=== PATIENT | male | born 2005 | race African-American/Black ===

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

== ENCOUNTER 2025-07-18 13:26 | Outpatient (AMB) | payer MEDICAID, SELFPAY ==
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
[2025-07-18 13:31] VITALS: BMI 16.2
== END 2025-07-18 14:24 | disposition home or self-care (01) ==
LOC: HO.HOS 13:26
PROVIDERS: Visit Provider Orthopaedic Surgery
DX: S61.412A Laceration without foreign body of left hand, initial encounter (principal); S41.132A Puncture wound without foreign body of left upper arm, initial encounter
CPT/HCPCS: 99204

== ENCOUNTER → 2025-07-18 13:26 | Outpatient (BNVA) | payer MEDICAID, SELFPAY | PROVIDERS: Visit Provider Orthopaedic Surgery | DX: S61.412A Laceration without foreign body of left hand, initial encounter (principal); S41.132A Puncture wound without foreign body of left upper arm, initial encounter; R20.2 Paresthesia of skin | CPT/HCPCS: 99202 ==

== ENCOUNTER → 2025-07-18 13:42 | Outpatient (BNV) | payer MEDICAID, SELFPAY | PROVIDERS: Visit Provider Radiology Diagnostic Radiology | DX: M79.5 Residual foreign body in soft tissue (principal) | CPT/HCPCS: 73130 ==

== ENCOUNTER 2025-07-19 08:30 | Outpatient (REF) | payer MEDICAID, SELFPAY ==
--- NOTE | ~2025-07-19 | XR_ITS ---
EXAMINATION: XR HAND 3 OR MORE VIEWS LEFT HISTORY: M79.642 - Pain in left hand COMPARISON: There are no prior studies available for comparison. FINDINGS: Three views of the right hand are submitted. Osseous mineralization is normal. There is no fracture or dislocation. The joint spaces are preserved. There is a 7 mm foreign body in the soft tissues of the palm. XR/XR hand LT min 3V IMPRESSION: 7 mm foreign body in the soft tissues of the palm. No osseous abnormality is identified. Electronically signed by: Lalo Sanchez MD 07/18/2025 01:50 PM EDT
--- OUTSIDE RECORDS SUMMARY | 2025-07-20 09:24 | XMS_ITS | Encounter Summary ---
Author Organization [facility] Address [email or web address] [place] [address] Phone Care Team Providers Care Grinder Dresser Name Role Phone Jo Ann Evangelista NP Primary Care Provider [phone] Encounter Details Date Type Department Care Team (Late Contact Info) Description 07/19/2025 Ancillary Orders [facility] IMG OUTSIDE IMG [address] [place] [address] Zelda Amato MD [address] [place] [address] [email or web address] Social History Tobacco Use Types Packs/Day Years Used Date Smoking Tobacco: Never Assessed Education Answer Date Recorded Are you interested in more education? Not on sudhakar e 07/19/2025 Are you concerned about learning? Not on file 07/19/2025 No 07/19/2025 No 07/19/2025 Digital Access Answer Date Recorded No 07/19/2025 No 07/19/2025 Reliable internet access at home? Not on file 07/19/2025 Device with a working camera? Not on file Sex and Gender Information Value Date Recorded Sex Assigned at Not on file Legal Sex Male 10:05 AM EDT Gender Identity Not on file Sexual Orientation Not on file documented as of this encounter Plan of Treatment Upcoming Encounters Date Type Department Care Team (Late st Contact Info) Description 08/04/2025 12:00 PM EDT Office Visit [facility] [address], [address] [place] [address] Zelda Amato MD [address] [facility] [address] [place] [address] [email or web address] documented as of this encounter Results * CT Face Outside (No Interpretation) (06/22/2025 12:05 AM EDT) Narrative [facility] IMG INTERFACES - 07/19/2025 3:23 PM EDT This study is for PACS storage only and not for interpretation. us Zelda Amato MD IMG OUTSIDE IMAGING W/ OUT INTERPRETATION Final Result [facility] IMG INTERFACES documented in this encounter Visit Diagnoses Not on filedocumented in this encounter Care Teams Grinder Dresser Relationship Specialty Start Date End Date Jo Ann Evangelista NP [address] [place] [id number] PCP - General Nurse Practitioner 07/19/25 documented as of this encounter Additional Source Comments The information contained in this document represents components of the legal health record. It is not the complete legal health record.[facility]
== END 2025-07-19 08:31 | disposition home or self-care (01) ==
LOC: HO.HOSX 08:30
PROVIDERS: Visit Provider Orthopaedic Surgery
DX: M79.642 Pain in left hand (principal)
CPT/HCPCS: 73130

== ENCOUNTER 2025-09-04 16:17 | Outpatient (REF) | payer MEDICAID, SELFPAY ==
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
[2025-09-04 18:02] LABS: CT PCR Urine NOT DETECTED (Not Detect.); NG PCR Urine NOT DETECTED (Not Detect.)
--- OUTSIDE RECORDS SUMMARY | 2025-09-04 18:29 | XMS_ITS | Encounter Summary ---
Author Organization [employer] Address [address] [place] [address] Care Team Providers Care Superintendent Concrete Mixing Plant Name Role Phone Jo Ann Evangelista Primary Care Provider [phone] Reason for Visit * Reason Onset Date Comments chartprep 09/01/2025 Encounter Details Date Type Department Care Team ([facility] st Contact Info) Description 09/01/2025 Telephone [facility] [address] [place] [address] Jo Ann Evangelista ANP [address] [place] [address] chartprep Social History Tobacco Use Types Packs/Day Years Used Date Smoking Tobacco: Never Passive Smoke Exposure: Never Smokeless Tobacco: Never Alcohol Use Standard Drinks/Week Comments Never 0 [...] AM EDT documented as of this encounter Miscellaneous Notes * Telephone Encounter - Alee Miranda [place] - 09/01/2025 1:23 PM EDT ..Chart Prep Labs: not applicable Images: done Xr hand Vaccines due: Covid Due, Hep A Due, Flu Due, and HPV Referrals: ENT Requested notes by Fax. Waiting for notes. Screenings: Not Applicable Overdue care gaps: Sbirt documented in this encounter Plan of Treatment Not on file documented as of this encounter Visit Diagnoses Not on filedocumented in this encounter Additional Health Concerns Assessment Noted Time PHQ-9 Depression Total Score: 2 07/18/20 25 10:23 AM EDT documented as of this encounter Care Teams Superintendent Concrete Mixing Plant Relationship Specialty Start Date End Date Jo Ann Evangelista ANP [address] [place] [address] PCP - General Family Medicine 08/20/23 documented as of this encounter
--- OUTSIDE RECORDS SUMMARY | 2025-09-04 18:29 | XMS_ITS | Encounter Summary ---
Author Organization [employer] Address [address] [place] [address] Care Team Providers Care Molding Process Technician Name Role Phone Jo Ann Evangelista CARTER Primary Care Provider [phone] Encounter Details Date Type Department Care Team (Latest Contact Info) Description 09/04/2025 Travel Social History Tobacco Use Types Packs/Day Years [...] AM EDT documented as of this encounter Plan of Treatment Not on file documented as of this encounter Visit Diagnoses Not on filedocumented in this encounter Additional Health Concerns Assessment Noted Time PHQ-9 Depression Total Score: 2 07/18/20 25 10:23 AM EDT documented as of this encounter Care Teams Molding Process Technician Relationship Specialty Start Date End Date Jo Ann Evangelista ANP [address] [place] [id number] PCP - General Family Medicine 08/20/23 documented as of this encounter
--- OUTSIDE RECORDS SUMMARY | 2025-09-04 18:29 | XMS_ITS | Encounter Summary ---
Author Organization [employer] Address [address] [place] [address] Care Team Providers Care Logistics Support Name Role Phone Jean Carlos Jo Ann MACHADO Primary Care Provider [phone] Encounter Details Date Type Department Care Team ([facility] st Contact Info) Description 09/01/[address] [facility] [address] [place] [address] [place] Social History Tobacco Use Types Packs/Day Years [...] encounter Miscellaneous Notes * Telephone Encounter - Marcia Bustos [place] - 09/01/2025 1:26 PM EDT Chart Prep Labs: not applicable Images: done Referrals: dental internal ,ENT pending Vaccines due: Covid, Flu, Hep A, and HPV Screenings: HIV Overdue care gaps: SBIRT documented in this encounter Plan of Treatment Not on file documented as of this encounter Visit Diagnoses Not on filedocumented in this encounter Additional Health Concerns Assessment Noted Time PHQ-9 Depression Total Score: 2 07/18/20 25 10:23 AM EDT documented as of this encounter Care Teams Logistics Support Relationship Specialty Start Date End Date Jo Ann Evangelista ANP [address] [place] [id number] PCP - General Family Medicine 08/20/23 documented as of this encounter
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
--- OUTSIDE RECORDS SUMMARY | 2025-09-04 18:29 | XMS_ITS | Encounter Summary ---
Author Organization [employer] Address [address] [facility] 7[address] [place] [address] Care Team Providers Care Inspecting Engineer Name Role Phone Sudheer Frederick Primary Care Provider Unavail Jo Ann Ortega Primary Care Provider [phone] Encounter Details Date Type Department Care Team ([facility] st Contact Info) Description 12/11/2022 Abstract [facility] [address] [place] [address] Shelly Malik, ADARSH Social History Tobacco Use Types Packs/Day Years Used Date Smoking Tobacco: Never Alcohol Use Standard Drinks/Week Comments Never 0 (1 standard drink = 0.6 oz pur e alcohol) Sex and Gender Information Value Date Recorded Sex Assigned at Male 09/29/2022 10:39 AM EDT Legal Sex Male 10:39 AM EDT Gender Identity Male 09/29/2022 10:39 AM EDT Sexual Orientation Choose not to disclose 2021 10:39 AM EDT COVID-19 Exposure Response Date Recorded In the last 10 days, have yo u been in contact with someone who was confirmed or suspected to have Coronavirus/COVID-19? No / Unsure 12/11/2022 7:42 AM EST documented as of this encounter Plan of Treatment Not on file documented as of this encounter Visit Diagnoses Not on filedocumented in this encounter Care Teams Inspecting Engineer Relationship Specialty Start Date End Date Sudheer Frederick AGNP PCP - General Family Medicine 11/25/22 08/19/23 Jo Ann Evangelista ANP [address] [place] [address] PCP - General Family Medicine 08/20/23 documented as of this encounter
--- OUTSIDE RECORDS SUMMARY | 2025-09-04 18:29 | XMS_ITS | Clinical Summary ---
Author Organization [facility] Address [facility] [address] [place] [phone] Phone Care Team Providers Care Demo Specialist Name Role Phone Jean Carlos Jo Ann MACHADO Primary Care Provider [phone] Allergies No known active allergies Medications No known medications Encounters Date Type Department Care Team Description 08/04/2025 12:00 PM EDT Office Visit [facility] [address] [facility], [address] [address] Zelda Amato MD Open fracture of mandible, unspecified laterality, unspecified mandibular site, initial encounter (Primary Dx); Malocclusion; Trismus 07/21/2025 Orders Only [facility] [address] [facility], [address] [address] ProviderSarina MD 07/19/2025 Ancillary Orders [facility] [address] [place] [address] Zelda Amato MD 07/19/2025 Ancillary Orders [facility] [address] [place] [address] Zelda Amato MD 07/19/2025 Ancillary Orders [facility] [address] [place] [address] Zelda Amato MD 07/19/2025 Ancillary Orders [facility] [address] [place] [address] Zelda Amato MD 06/22/2025 12:15 AM EDT - 06/22/2025 11:59 PM EDT Hospital Encounter [facility] [address] [place] [address] Zelad Amato MD Discharge Disposition: Home or Self Care 06/22/2025 12:10 AM EDT - 06/22/2025 12:14 AM EDT Hospital Encounter [facility] [address] [place] [address] Zelda Amato MD Discharge Disposition: Home or Self Care 06/22/2025 12:05 AM EDT - 06/22/2025 12:09 AM EDT Hospital Encounter [facility] [address] [place] [address] Zelda Amato MD Discharge Disposition: Home or Self Care 06/22/2025 - 06/22/2025 12:04 AM EDT Hospital Encounter [facility] [address] [place] [address] Zelda Amato MD Discharge Disposition: Home or Self Care from Last 3 Months Social History Tobacco Use Types Packs/Day Years Used Date Smoking Tobacco: Never Smokeless Tobacco: Never Tobacco Cessation:Counseling Given: Not Answered Education Answer Date Recorded Are you interested [...] on file Sexual Orientation Not on file Plan of Treatment Upcoming Encounters Date Type Department Care Team (Late st Contact Info) Description 08/04/2025 Procedure Pass [facility] Ct Scan - [address] [address] 09/08/2025 12:00 PM EDT Appointment [facility] - [facility] [address] [place] [address] Zelda Amato MD [address] [place] [phone] Health Maintenance Due Date Last Done Comments DEVELOPMENTAL/BEHAVIORAL SCREENING (PHQ, PSC, or SWYC) 2008 VARICELLA VACCINES (2 of 2 - 2-dose childhood series) 2009 05/12/2006 DEPRESSION SCREENING 2017 HPV VACCINES (1 - Male 3-dos e series) 2020 MENINGOCOCCAL VACCINES (B) ( 1 of 2 - Standard) 2021 COMBINED DTaP,Tdap,Td (3 - T d or Tdap) 08/27/2021 07/30/2021, 2005 ADOLESCENT UNIVERSAL LIPID SCREENING 2022 HEPATITIS C SCREENING 2023 HIV ONE-TIME SCREENING (18-6 5 YEARS) 2023 INFLUENZA VACCINE (#1) 2025 COVID-19 VACCINE (1 - 2024-2 6 season) 2025 SMOKING Hx and SMOKELESS TOBACCO SCREENING 08/04/2026 08/04/2025 MMR VACCINES Completed 12/06/2008, 05/12/2006 HEPATITIS A VACCINES Aged Out No long er eligible based on patient's age to complete this topic HIB VACCINES Aged Out No longer eligi ble based on patient's age to complete this topic MENINGOCOCCAL VACCINES (ACWY) Aged Out No longer eligible based on patient's age to complete this topic PNEUMOCOCCAL VACCINES (0-49 years) Aged Out No longer eligible b ased on patient's age to complete this topic Medical Devices Not on file Procedures Procedure Name Priority Date/Time Associated Diagnosis Comments OUTSIDE IMAGING Routine 06/22/2025 7:[address] HEAD OUTSIDE (NO INTERPRETATION) Routine 06/22/2025 12:[address] SPINE (BONE) OUTSIDE (NO INTERPRETATION) Routine 06/22/2025 12:[address] FACE OUTSIDE (NO INTERPRETATION) Routine 06/22/2025 12:[address] NECK OUTSIDE (NO INTERPRETATION) Routine 06/22/2025 12:00 AM EDT from Last 3 Months Results * Outside Imaging Report Only (06/22/2025 7:51 AM EDT) us Historical Provider IMG XR CHEST Final Res ult * CT Head Outside (No Interpretation) (06/22/2025 12:15 AM EDT) Narrative [facility] INTER[facility]ACES - 07/19/2025 3:24 PM EDT This study is for PACS storage only and not for interpretation. us Zelda Amato MD IMG OUTSIDE IMAGING W/ OUT INTERPRETATION Final Result Performing Organization Address [facility] de Phone Number [facility] INTER[facility]AC[facility] * CT Spine (Bone) Focus Outside (No Interpretation) (06/22/2025 12:10 AM EDT) Narrative [facility] INTER[facility]ACES - 07/19/2025 3:23 PM EDT This study is for PACS storage only and not for interpretation. us Zelda Amato MD IMG OUTSIDE IMAGING W/ OUT INTERPRETATION Final Result Performing Organization Address [facility] de Phone Number [facility]AC[facility] * CT Face Outside (No Interpretation) (06/22/2025 12:05 AM EDT) Narrative [facility] INTER[facility] - 07/19/2025 3:23 PM EDT This study is for PACS storage only and not for interpretation. us Zelda Amato MD IMG OUTSIDE IMAGING W/ OUT INTERPRETATION Final Result Performing Organization Address [facility] de Phone Number [facility] INTERFACES * CT Neck Outside (No Interpretation) (06/22/2025 12:00 AM EDT) Narrative [facility] INTER[facility] - 07/19/2025 3:23 PM EDT This study is for PACS storage only and not for interpretation. us Zelda Amato MD IMG OUTSIDE IMAGING W/ OUT INTERPRETATION Final Result [facility] INTERFACES from Last 3 Months [id number] [place] [address] [id number] [place] [address] C3 ACO [facility] C3 ACO [id number] [place] [address] C3 [employer] [facility] C3 [employer] [facility] C3 [employer] [facility] [employer] Care Teams Demo Specialist Relationship Specialty Start Date End Date Jo Ann Evangelista ANP [address] [place] [phone] PCP - General Nurse Practitioner 07/19/25 Additional Source Comments The information contained in this document represents components of the legal health record. It is not the complete legal health record.[facility]
--- OUTSIDE RECORDS SUMMARY | 2025-09-04 18:29 | XMS_ITS | Clinical Summary ---
Author Organization [facility] Address [address] [place] [address] Phone Care Team Providers Care Associate Professor Of Geology Name Role Phone Physician, Pcp Unknown Primary Care Provider Linda vailable Allergies No known active allergies Encounters Date Type Department Care Team Description 08/10/2025 9:25 AM EDT - 08/10/2025 11:19 AM EDT Emergency [facility] Emergency [address] [place] [address] Edwin Sanchez MD Foreign body (FB) in soft tissue (Primary Dx) Discharge Disposition: Home or Self Care from Last 3 Months Social History Tobacco Use Types Packs/Day Years Used Date Smoking Tobacco: Never Assessed Sex and Gender Information Value Date Recorded Sex Assigned at Not on file Legal Sex Male 9:19 AM EDT Gender Identity Not on file Sexual Orientation Not on file Last Filed Vital Signs Vital Sign Reading Time Taken Comments Blood Pressure 129/89 08/10/2025 9:23 AM EDT Pulse 81 08/10/2025 9:23 AM EDT Temperature 36.3 C (97.3 F) 08/10/2025 9:23 AM EDT Respiratory Rate 16 08/10/2025 9:23 AM EDT Oxygen Saturation 100% 08/10/2025 9:23 AM EDT Inhaled Oxygen Concentration - - Weight 52.2 kg (115 lb) 08/10/2025 9:23 AM EDT Height 177.8 cm (5' 10 ) 08/10/2025 9:23 AM EDT Body Mass Index 16.5 08/10/2025 9:23 AM EDT Plan of Treatment Health Maintenance Due Date Last Done Comments Varicella Vaccines (2 of 2 - 2-dose childhood series) 2009 05/12/2006 Hepatitis A Vaccines (2 of 2 - 2-dose series) 06/04/2009 12/05/2008, 08/03/2008 HPV Vaccines (1 - Male 3-dose series) 2020 Meningococcal B Vaccine (1 of 2 - Standard) 2021 Depression Screening 11/30/2024 COVID-19 Vaccine (1 - season) 2025 Influenza Vaccine (#1) 2025 Annual Well Child Visit (3-21 years old) 08/10/2025 11/28/2022 HIV Screening 08/10/2025 Hepatitis C Screening 08/10/2025 Social Influencers of Health Screening 08/10/2025 DTaP,Tdap,and Td Vaccines (6 - Td or Tdap) 07/30/2031 07/30/2021, 12/06/2008, 10/15/2007, Additional history exists RSV Immunization Adult Patients (1 - 1-dose 75+ series) 2080 HIB Vaccines Aged Out 01/27/2006, 10/30, 2005 No longer eligible based on patient's age to complete this topic Hepatitis B Vaccines Completed 01/27/2006, 2005, 2005 Pneumococcal Vaccine: Pediatrics (0 to 5 Years) and At-Risk Patients (6 to 49 Years) Completed 10/15/2006, 01/27/2006, 2005, Additional history exists IPV Vaccines Completed 12/06/2008, 09/30, 07/21/2006, Additional history exists MMR Vaccines Completed 12/06/2008, 05/12/2006 Meningococcal ACWY Vaccine Aged Out N o longer eligible based on patient's age to complete this topic RSV Immunization Patients Under 20 months Aged Out No longer eligible based on patient's age to complete this topic Procedures Procedure Name Priority Date/Time Associated Diagnosis Comments XR HAND 3+ VIEWS LEFT STAT 08/10/2025 10:00 AM EDT from Last 3 Months Results * XR Hand 3+ Views Left (08/10/2025 10:00 AM EDT) Anatomical Region Laterality Modality Upper Extremities, Hand Left Radiogra phic Imaging 08/10/2025 10:4 6 AM EDT Impressions 08/10/2025 10:49 AM EDT No fracture or dislocation. 5 mm radiopaque foreign body as detailed above. -------- FINAL REPORT -------- Dictated By: Beatriz Cintron Dictated Date: 08/10/2025 10:46 ET Assigned Physician: Beatriz Cintron Reviewed and Electronically Signed By: Beatriz Cintron Signed Date: 08/10/2025 10:49 ET Workstation ID: [id number] Transcribed By: Self Edit Transcribed Date: 08/10/2025 10:46 ET Narrative 08/10/2025 10:49 AM EDT INDICATION: Pain FINDINGS: 3 views of the left hand were obtained. No prior studies available for comparison. Bones: No fracture or dislocation. No focal bony lesion or periosteal reaction. Soft tissues: Up to 5 mm radiopaque foreign body noted along the palmar surface of the hand overlying the third carpometacarpal joint on the frontal view. Shape and density suspicious for a piece of glass. Procedure Note Beatriz Cintron MD - 08/10/2025 INDICATION: Pain FINDINGS: 3 views of the left hand were obtained. No prior studiesavailable for comparison. Bones: No fracture or dislocation. No focal bony lesion or periostealreaction. Soft tissues: Up to 5 mm radiopaque foreign body noted along the palmarsurface of the hand overlying the third carpometacarpal joint on thefrontal view. Shape and density suspicious for a piece of glass. IMPRESSION: No fracture or dislocation. 5 mm radiopaque foreign body as detailed above. -------- FINAL REPORT -------- Dictated By: Beatriz Cintron Dictated Date: 08/10/2025 10:46 ET Assigned Physician: Beatriz Cintron Reviewed and Electronically Signed By: Beatriz Cintron Signed Date: 08/10/2025 10:49 ET Workstation ID: [id number] Transcribed By: Self Edit Transcribed Date: 08/10/2025 10:46 ET Edwin Sanchez MD IMG XR PROCEDURES Final Result from Last 3 Months Insurance MEDICAID - [place] Care Teams Associate Professor Of Geology Relationship Specialty Start Date End Date Physician, Pcp Unknown PCP - General 08/10/25
== END 2025-09-04 16:18 | disposition home or self-care (01) ==
LOC: HO.LNP 16:17
PROVIDERS: Visit Provider Nurse Practitioner Primary Care
DX: Z20.2 Contact with and (suspected) exposure to infections with a predominantly sexual mode of transmission (principal)
CPT/HCPCS: 87491; 87591